=== PATIENT | female | born 1960 | race Caucasian/White ===

== ENCOUNTER → 2017-01-07 | Outpatient (CLI) | payer BC ==
--- NOTE | ~2017-01-07 | MR182 ---
[facility] A Service of [facility] RADIOLOGY TEXT RESULTS PATIENT: SHELLY MENA LOCATION: [facility] : 58 UNIT #: [id number] AGE: [address]: Reena Concepcion SEX: F ORDER DR: [id number] [facility] [address] [place], [place] [address] [id number] O MR#: [id number] Acc #: [id number] NAME: SHELLY MENA : 1960 SEX: F STUDY DATE/TIME: 01/07/2017 16:21 UNIT: [facility] ROOM: STUDY DESCRIPTION: MR Tibia and Fibula Wo Cont Rt Attending Physician: Reena Concepcion P.A.-C. Referring Physician: Reena Concepcion P.A.-C. Ordering Physician: Reena Concepcion P.A.-C. Primary Care Physician: Loretta Sadler M.D. MRI CENTER REPORT This report is preliminary unless electronic signature is present. EXAM Right leg MRI without contrast 01/07/2017 HISTORY 56-year-old female with right mid and lower leg pain since beginning of September 2016. No prior right leg surgery COMPARISON Right leg x-rays 01/04/2017. Right foot and ankle x-rays 05/20/2016. TECHNIQUE Routine unenhanced multiplanar, multisequence high-field MR imaging of the right tibia and fibula was performed. FINDINGS No evidence of a stress fracture or stress reaction. Visualized musculature is unremarkable. No abnormal fluid collections. Subcutaneous soft tissues are within normal limits. Small intraosseous ganglion cyst or enthesopathic cyst in the fibular head is incidentally noted, measuring 1.2 cm. This is of doubtful clinical significance. IMPRESSION Unremarkable right leg MRI. No evidence of a stress fracture or stress reaction. Visualized musculature and soft tissues are within normal limits. Dictated by... Mello Izaguirre M.D. THIS IS AN ELECTRONICALLY VERIFIED REPORT Mello Izaguirre M.D. at 01/10/2017 4:36 PM ROSA/aa STS. [facility] A Service of [facility] RADIOLOGY TEXT RESULTS PATIENT: SHELLY MENA LOCATION: [facility] : 58 UNIT #: [id number] AGE: [address]: Reena Concepcion SEX: F ORDER DR: TD: 01/10/2017 14:30 JOB #: [id number] MRI CENTER REPORT Page 1 of 1 COPY
== END | disposition home or self-care (01) ==
LOC: CMRI 15:31
DX: M79.661 Pain in right lower leg (principal)
CPT/HCPCS: 73718